=== PATIENT | female | born 1935 | race African-American/Black ===

== ENCOUNTER 2021-01-25 22:55 | Inpatient (IN) | payer OTHER, SELFPAY ==
[~2021-01-25] VITALS: Ht 167.6 cm; Wt 64.0 kg
[2021-01-25 23:10] VITALS: BP_SYST 143
--- NOTE | 2021-01-25 23:10 | NUR ---
Patient to ER bed 1 to gown for evaluation. Side rails up. Report given to self. ER Dr. Oleary at bedside examining patient. Code stroke cancelled. Addendum: 01/26/21 at 0147 by [email or web address] Patient transported to radiology via gurney, accompanied by mechanical manufacturing technician.
[2021-01-25] MEDS ORDERED: LABETALOL 100 MG/ 20ML VIAL IVP PRN (23:15)
--- NOTE | 2021-01-25 23:20 | NUR ---
Returned from radiology, back to [facility].
--- NOTE | 2021-01-26 00:10 | NUR ---
# 20 gauge angiocath placed to rac. Use of asceptic technique. Opsite placed over site. Blood return noted. Flushed with 10 cc of normal saline. No evidence of infiltration noted. Patient tolerated well.
[2021-01-26 00:22] LABS: BASOPHILS % (AUTO) 0.6 % (0.0-2.0); EOSINOPHILS % (AUTO) 1.1 % (0.0-4.0); HEMATOCRIT 39.9 % (36-48); HEMOGLOBIN 12.9 g/dL (12.0-16.0); LYMPHOCYTES % (AUTO) 25.7 % (20.5-51.5); MEAN CORPUSCULAR HEMOGLOBIN 28 pg (27-31); MEAN CORPUSCULAR HGB CONC 32 % (32-36); MEAN CORPUSCULAR VOLUME 86 fL (79.0-98.0); MONOCYTES # (AUTO) 0.9 K/uL (0.0-1.0); MONOCYTES % (AUTO) 21.1 % (1.7-9.3); NEUTROPHILS # (AUTO) 2.1 K/uL (1.8-7.7); NEUTROPHILS % (AUTO) 51.5 % (40.0-70.0); PLATELET COUNT (AUTO) 153 K/uL (130-430); RED BLOOD CELL COUNT(AUTO) 4.67 MIL/uL (4.2-6.2); RED CELL DISTRIBUTION WIDTH 16.5 % (9.0-15.0); WHITE BLOOD COUNT (AUTO) 4.1 K/uL (4.8-10.8)
[2021-01-26 00:30] LABS: ANION GAP 10 (5-15); CALCIUM 8.7 mg/dL (8.4-11.0); CHLORIDE 99 mmol/L (98-107); CREATININE 1.16 mg/dL (0.55-1.30); GLUCOSE 97 mg/dL (70-99); POTASSIUM 3.3 mmol/L (3.5-5.1); SODIUM SERUM 134 mmol/L (136-145); UREA NITROGEN, BLOOD 16 mg/dL (8-21)
[2021-01-26 00:33] LABS: INR 1.3 (0.8-1.2); PROTHROMBIN TIME 13.5 SECS (9.5-12.5)
[2021-01-26 00:41] LABS: ALANINE AMINOTRANSFERASE 20 U/L (12-78); ALBUMIN 2.6 g/dL (3.4-4.8); ASPARTATE AMINOTRANSFERASE 43 U/L (10-37); TOTAL BILIRUBIN 0.5 mg/dL (0.0-1.0)
[2021-01-26] MEDS ORDERED: DIPHENHYDRAMINE INJ 50 MG/ML VIAL IVP ONE (01:30)
--- NOTE | 2021-01-26 01:30 | NUR ---
patient resting comfortably at this time w/ c/o generalized body pain. patient to be medicated as ordered. bed to low position sr up, continue to monitor.
--- NOTE | 2021-01-26 01:43 | NUR ---
Medicated w/ benadryl 50mg ivp per MD orders. Will cont to monitor and observe for any adverse reaction.
--- NOTE | 2021-01-26 02:24 | NUR ---
# 16 FR Ellsworth catheter with use of sterile technique. Immediate return of 10 cc yellow, clear urine noted. Bedside drainage bag placed below level of bladder. Urine sample collected and sent to lab. Pt tolerated procedure well.
[2021-01-26] MEDS ORDERED: hydrALAZINE HCL 20 MG/ML VIAL IVP PRN ×2 (02:30)
[2021-01-26] MEDS ORDERED: ACETAMINOPHEN 325 MG TABLET PO PRN (02:30)
[2021-01-26 02:40] LABS: BASOPHILS % (AUTO) 0.9 % (0.0-2.0); EOSINOPHILS % (AUTO) 0.6 % (0.0-4.0); HEMATOCRIT 37.9 % (36-48); HEMOGLOBIN 12.3 g/dL (12.0-16.0); LYMPHOCYTES # (AUTO) 0.5 K/uL (1.0-5.5); LYMPHOCYTES % (AUTO) 14.8 % (20.5-51.5); MEAN CORPUSCULAR HEMOGLOBIN 27 pg (27-31); MEAN CORPUSCULAR HGB CONC 33 % (32-36); MEAN CORPUSCULAR VOLUME 85 fL (79.0-98.0); MONOCYTES # (AUTO) 0.5 K/uL (0.0-1.0); MONOCYTES % (AUTO) 14.7 % (1.7-9.3); NEUTROPHILS # (AUTO) 2.5 K/uL (1.8-7.7); PLATELET COUNT (AUTO) 179 K/uL (130-430); RED BLOOD CELL COUNT(AUTO) 4.49 MIL/uL (4.2-6.2); RED CELL DISTRIBUTION WIDTH 16.7 % (9.0-15.0); WHITE BLOOD COUNT (AUTO) 3.6 K/uL (4.8-10.8)
[2021-01-26 02:56] LABS: ANION GAP 8 (5-15); CALCIUM 8.5 mg/dL (8.4-11.0); CHLORIDE 100 mmol/L (98-107); CREATININE 1.13 mg/dL (0.55-1.30); GLUCOSE 82 mg/dL (70-99); SODIUM SERUM 135 mmol/L (136-145); UREA NITROGEN, BLOOD 17 mg/dL (8-21)
[2021-01-26 03:03] LABS: BILIRUBIN,URINE NEGATIVE (NEGATIVE); CLARITY/URINE CLEAR (CLEAR); COLOR,URINE YELLOW (YELLOW); GLUCOSE,URINE NEGATIVE (NEGATIVE); KETONES,URINE NEGATIVE (NEGATIVE); LEUKOCYTE ESTERASE ,URINE TRACE (NEGATIVE); NITRITE, URINE NEGATIVE (NEGATIVE); PROTEIN URINE 2+ (NEGATIVE); UROBILINOGEN,URINE 0.2 (0.2-1.0)
[2021-01-26 03:07] LABS: BLOOD, URINE TRACE (NEGATIVE)
--- NOTE | 2021-01-26 03:30 | NUR ---
Patient resting quietly. No acute distress noted. Vital signs within normal range.
[2021-01-26 04:21] LABS: BACTERIA,URINE MODERATE /HPF (None Seen)
[2021-01-26 04:22] LABS: MUCUS,URINE None Seen /LPF (None Seen)
[2021-01-26] MEDS ORDERED: LEVE500T9 PO (04:40)
[2021-01-26] MEDS ORDERED: ASA81 PO (04:40)
[2021-01-26] MEDS ORDERED: ALPR0.25 PO (04:40)
[2021-01-26] MEDS ORDERED: OLOP5DRO15 EACH EYE (04:40)
[2021-01-26] MEDS ORDERED: TRAM50TA PO (04:40)
[2021-01-26] MEDS ORDERED: FURO-150 PO (04:40)
[2021-01-26] MEDS ORDERED: LEVO112T5 PO (04:40)
[2021-01-26] MEDS ORDERED: CYAN100010 PO (04:40)
[2021-01-26] MEDS ORDERED: METO25TA3 PO (04:40)
[2021-01-26] MEDS ORDERED: CIPR500T5 PO (04:40)
[2021-01-26] MEDS ORDERED: SIMV10TA97 PO (04:40)
[2021-01-26] MEDS ORDERED: FOLI-43 PO (04:40)
--- NOTE | 2021-01-26 05:30 | NUR ---
Patient resting quietly. No acute distress noted. Vital signs within normal range.
--- NOTE | 2021-01-26 07:25 | NUR ---
PT TO BE TAKEN TO THE TELEMETRY FLOOR NOW.
[2021-01-26 08:00] VITALS: BP_SYST 114
--- NOTE | 2021-01-26 08:00 | NUR ---
Notes- Received patient from ER awake, oriented to name and birthdate, son at bedside. Denies any chest pain or shortness of breath. just complain of back pain, Repositioned for comfort. bed alarm on. will monitor.
[2021-01-26 08:37] VITALS: BP_SYST 114
--- NOTE | 2021-01-26 10:30 | NUR ---
MD rounds Seen by Dr. Moreno covering for Dr. rogel at bedside.
--- NOTE | 2021-01-26 10:42 | NUR ---
CONSULTATION PAGED/CALLED Reason for Consultation: STROKE Person Who was Notified: DR GUTIERREZ Consulting Physician: DR GUTIERREZ Physical Laboratory Assistant Specialty: Ordering Physician: OLIVERIO ABDI WAS INFORMED VIA TEXT REQUESTED Addendum: 01/26/21 at 1102 by David Ayala [place]/ CONSULT WAS SENT TO DOCTOR SEGUNDO REQUESTED BY BRENDA
[2021-01-26] MEDS: ONDANSETRON HCL 4 MG/2 ML VIAL IVP PRN (11:10)
[2021-01-26] MEDS: ENOXAPARIN SODIUM 40 MG/0.4 ML SYRINGE SUBCUT SCH (11:16)
[2021-01-26] MEDS: MORPHINE 2 MG/ML INJ. SYRINGE IVP PRN ×2 (11:17→15:49)
[2021-01-26 12:00] VITALS: BP_SYST 112
[2021-01-26] MEDS ORDERED: METOPROLOL SUCCINATE 25 MG TAB.SR.24H (TOPROL XL) PO ONE (15:00)
--- NOTE | 2021-01-26 15:30 | NUR ---
MD rounds Seen by neurologist at bedside.
--- NOTE | 2021-01-26 16:00 | NUR ---
Morphine- Per , they don't want to give morphine to patient because she hallucinates, but there is no allergic reaction to it.
[2021-01-26 16:20] VITALS: BP_SYST 116
[2021-01-26] MEDS: cefTRIAXone 1 GM in D5W 50 ML IV SCH (17:06)
--- NOTE | 2021-01-26 17:40 | NUR ---
paged- Per report in ER this morning, potassium is 3.0 and it was replaced, Unable to see orders or documentation that was replaced, called .
--- NOTE | 2021-01-26 18:44 | NUR ---
closing notes- Awake, family at bedside, pt talks a lot, No distress noted.
--- NOTE | 2021-01-26 19:10 | NUR ---
RECEIVED BEDSIDE REPORT. PT IN BED RESTING. PT AOX1. RR EVEN AND UNLABORED ON RA. HOB ELEVATED. TUBE FEEDING INFUSING VIA G TUBE. HEELS FLOATING. BED RAILS UPX3. CALL LIGHT WITHIN REACH. BED LOCKED IN LOWEST POSITION. FAMILY AT BEDSIDE. WILL CONTINUE TO MONITOR.
[2021-01-26 20:23] VITALS: BP_SYST 103
[2021-01-26] MEDS: levETIRAcetam 500 MG TABLET PO SCH (20:26)
[2021-01-26] MEDS: SIMVASTATIN 10 MG TABLET PO SCH (20:26)
[2021-01-26] MEDS ORDERED: OLOPATADINE HCL Non-Formulary 5 ML DROPS OP SCH (21:00)
[2021-01-27 00:55] VITALS: BP_SYST 105
--- NOTE | 2021-01-27 08:00 | NUR ---
am notes late entry due to care PT STABLE NOTIN ACUTE DISTRESS. VITALS STABLE. REPOSITIONED. PEPPER DRAINING WELL. HOB ELEVATED G TUBE FEEDING CONITNUE ORDERED. PT TOLERATING WELL. REPOSITIONED WITH PILLOW. SAFETY/FALL /SEIZURE PRECAUTIONS IN PLACE. WILL CONITNUE TO MONITOR
[2021-01-27 08:10] VITALS: BP_SYST 99
[2021-01-27] MEDS: FUROSEMIDE 20 MG TABLET PO SCH (09:00)
[2021-01-27] MEDS: METOPROLOL SUCCINATE 25 MG TAB.SR.24H (TOPROL XL) PO SCH (09:00)
[2021-01-27] MEDS: NACL 0.9% 1,000 ML IV SCH ×2 (09:21→22:26)
[2021-01-27] MEDS: LEVOTHYROXINE SODIUM 0.112 MG TABLET PO SCH (10:13)
[2021-01-27] MEDS: levETIRAcetam 500 MG TABLET PO SCH (10:13)
[2021-01-27] MEDS: ASPIRIN 81 MG TAB.CHEW PO SCH (10:13)
[2021-01-27] MEDS: ENOXAPARIN SODIUM 40 MG/0.4 ML SYRINGE SUBCUT SCH (10:14)
[2021-01-27 11:28] VITALS: BP_SYST 96
--- NOTE | 2021-01-27 11:47 | NUR ---
Nutrition Update Ashutosh Scale 15 noted. Pt admitted for r/o stroke. Diet: Glucerna 1.2 at 40 ml/hr, Free Water Flush: 50 via GT BMI: 22.6 kg/m2 RD to follow per nutrition care standards.
[2021-01-27] MEDS: cefTRIAXone 1 GM in D5W 50 ML IV SCH (15:09)
--- NOTE | 2021-01-27 15:14 | NUR ---
PT STABLE NOTIN ACUTE DISTRESS. SEEN BY RATNA.DENIES ANY PAIN.NEEDS ATTENDED . PTCLEANED AND REPOSITIONED. PEPPER DRAINING WELL. HOB ELEVATED G TUBE FEEDING CONITNUE ORDERED. PT TOLERATING WELL. REPOSTIONED WITH PILLOW. WILL CONITNUE TO MONITOR
[2021-01-27 15:15] VITALS: BP_SYST 104
[2021-01-27] MEDS ORDERED: POTASSIUM CHLORIDE 40 MEQ, LIDOCAINE JECT 2% PF 100 MG 50 MG in NS 250 ML IV ONE (16:00)
--- NOTE | 2021-01-27 18:48 | NUR ---
CLOSING NOTES PT STABLE . RESTING COMFORTABLY. NOTIN ACUTE DISTRESS. REPOSITIONED. PEPPER DRAINING WELL. HOB ELEVATED G TUBE FEEDING CONTINUE ORDERED. PT TOLERATING WELL. AT BED SIDE. SAFETY/FALL /SEIZURE PRECAUTIONS IN PLACE. WILL ENDORSE TO NIGHT NURSE
[2021-01-27] MEDS: SIMVASTATIN 10 MG TABLET PO SCH (22:25)
[2021-01-27] MEDS: levETIRAcetam 500 MG TABLET GT SCH (22:25)
[2021-01-27 22:26] VITALS: BP_SYST 108
[2021-01-28 01:16] VITALS: BP_SYST 109
[2021-01-28] MEDS: HYDROcodone/ACETAMIN 5-325 MG TAB (NORCO/ VICODIN) PO PRN (01:31)
--- NOTE | 2021-01-28 07:45 | NUR ---
START SHIFT REPORT: RECV'D PT. FROM [facility] NURSE. SON IS AT BEDSIDE. PT. AWAKE AND ALERT AND DENIES PAIN. RAC IV INTACT AND PATENT WITH FLUIDS INFUSING AND TOLERATED WELL. NO S/S INFECTION OR INFILTRATION AT SITE. GT INTACT AND PATENT WITH GLUCERNA 1.2 FEED INFUSING AT 4OML. GT SITE HAS NO REDNESS, SWELLING, BLEEDING, OR ODOR AT SITE.PT C/O OF SLIGHT NAUSEA. SON REQUESTED HOB TO BE SLIGHTLY ELEVATED. ALL SAFETY PRECAUTIONS BEING MAINTAINED WITH BED IN LOWEST POSITION, 3 SIDE RAILS UP, AND CALL MCGUIRE WITHIN REACH. WILL CONTINUE TO MONITOR PT. THROUGHOUT SHIFT.
--- NOTE | 2021-01-28 07:48 | NUR ---
PT IN BED RESTING. SON AT BEDSIDE. MRI CHECKLIST SIGNED. ENDORSED CARE TO DAY NURSE. PT IN BED RESTING.
[2021-01-28 08:00] VITALS: BP_SYST 137
[2021-01-28] MEDS: ENOXAPARIN SODIUM 40 MG/0.4 ML SYRINGE SUBCUT SCH (09:00)
--- NOTE | 2021-01-28 09:30 | NUR ---
ASSISTED SON WITH GIVING PT. BED BATH, AND CHANGING BED LINENS. SON REQUESTED AND USED WASHCLOTHS TO BATHE/CLEAN PT. WITH. PEPPER INTACT AND PATENT DRAINING CLEAR, YELLOW URINE. DENIES PAIN. C/O OF BEING COLD. PT. COVERED WITH SEVERAL SHEETS AND BLANKETS. SAFETY PRECAUTIONS BEING MAINTAINED WITH BED IN LOWEST POSITION, 3 SIDE RAILS UP, AND CALL MCGUIRE WITHIN REACH. WILL CONTINUE TO MONITOR PT.
--- NOTE | 2021-01-28 11:30 | NUR ---
CONSULT CALLED DR CEDILLO, SPOKE WITH GINETTE, CONSULT FOR INCREASED TROPONIN
[2021-01-28] MEDS: levETIRAcetam 500 MG TABLET GT SCH ×2 (11:31→21:28)
[2021-01-28] MEDS: FUROSEMIDE 20 MG TABLET PO SCH (11:32)
[2021-01-28] MEDS: ASPIRIN 81 MG TAB.CHEW PO SCH (11:32)
[2021-01-28] MEDS: LEVOTHYROXINE SODIUM 0.112 MG TABLET PO SCH (11:33)
[2021-01-28] MEDS: METOPROLOL SUCCINATE 25 MG TAB.SR.24H (TOPROL XL) PO SCH (11:33)
--- NOTE | 2021-01-28 14:28 | NUR ---
NEW ORDERS: RECV'D NEW ORDER FROM SUNNY SMASHER TO INCREASE GT FEED GLUCERNA 1.2 TO 50ML/HR, AND GT FLUSHES TO 150ML EVERY 6 HOURS.
--- NOTE | 2021-01-28 15:21 | NUR ---
Dietitian Recommendations * Glucerna 1.5 at 55 ml/hr (goal rate), Free Water Flush: 150 ml Q6h via GT Provides: 1980 kcal/day, 109 gm protein/day, and 1602 ml free water/day Meets: 103% of lower end of estimated caloric needs and 85% of upper end of estimated protein needs LP, RD Please refer to Nutrition Assessment for details. Addendum: 01/28/21 at [address] Amended: Links added.
--- NOTE | 2021-01-28 16:01 | NUR ---
PT. IV CAME OUT OF ARM. PT. REFUSING TO HAVE IV REINSERTED. WILL INFORM MD OF PT. REFUSING. PT. LEFT FOR MRI OF HEAD AT 1515 VIA [facility] BY 2 ESCORTS. RETURNED FROM MRI AT 1600. WILL REEDUCATE PT. ON IMPORTANCE OF HAVING IV REINSERTED.
[2021-01-28] MEDS: cefTRIAXone 1 GM in D5W 50 ML IV SCH (16:58)
[2021-01-28] MEDS: ONDANSETRON HCL 4 MG/2 ML VIAL IVP PRN (17:48)
--- NOTE | 2021-01-28 19:00 | NUR ---
RECEIVED BEDSIDE REPORT. PT IN BED RESTING. PT AOX1. RR EVEN AND UNLABORED ON RA. HOB ELEVATED. TUBE FEEDING INFUSING VIA G TUBE. HEELS FLOATING. BED RAILS UPX3. CALL LIGHT WITHIN REACH. BED LOCKED IN LOWEST POSITION. FAMILY AT BEDSIDE. WILL CONTINUE TO MONITOR. RN EDUCATED PATIENT TO MEDICAL PLAN OF CARE. FALL AND SAFETY INTERVENTIONS AND PLAN OF CARE. VSS. NO ACUTE DISTRESS NOTED.
--- NOTE | 2021-01-28 19:30 | NUR ---
END SHIFT REPORT: ENDORSED PT. AND GAVE REPORT TO NIGHT NURSE JOLEEN. GAIL DAY NURSE REINSERTED NEW IV 22G IN RIGHT HAND. ROCEPHIN ABT INFUSED 100%. IV WAS INTACT AND PATENT WITH NO S/S OF INFECTION OR INFILTRATION. END OF SHIFT IV CAME OUT AGAIN, AND PT. REFUSED TO HAVE REINSERTED BECAUSE STATED "I DON'T WANT TO BE STUCK AGAIN." INFORMED CLAIMS VICE PRESIDENT MD. DR. MARTINEZ THAT PT. REFUSED IV REINSERTION. DR. MARTINEZ STATED TO DOCUMENT PT. REFUSED. SON CAME IN AND TALKED TO PT. ABOUT IMPORTANCE OF HAVING IV REINSERTED. PT. AGREED TO HAVE IV REINSERTED.
[2021-01-28] MEDS: SIMVASTATIN 10 MG TABLET PO SCH (21:27)
[2021-01-28] MEDS: NACL 0.9% 1,000 ML IV SCH (21:27)
[2021-01-29 00:06] VITALS: BP_SYST 124
[2021-01-29] MEDS: ALPRAZolam 0.25 MG TABLET PO PRN ×2 (00:16→12:31)
[2021-01-29 04:00] VITALS: BP_SYST 132
--- NOTE | 2021-01-29 08:00 | NUR ---
INITIAL NOTES AWAKE, CONFUSED. DENIES ANY SHORTNESS OF BREATH OR CHEST PAIN. IVF INFUSING WELL. GT FEEDING TOLERATING SO FAR. PEPPER CATH DRAINING WELL. BED ALARM ON. WILL CONTINUE TO MONITOR.
[2021-01-29 08:08] VITALS: BP_SYST 139
[2021-01-29] MEDS: levETIRAcetam 500 MG TABLET GT SCH ×2 (08:54→21:18)
[2021-01-29] MEDS: LEVOTHYROXINE SODIUM 0.112 MG TABLET PO SCH (08:54)
[2021-01-29] MEDS: FUROSEMIDE 20 MG TABLET PO SCH (08:54)
[2021-01-29] MEDS: METOPROLOL SUCCINATE 25 MG TAB.SR.24H (TOPROL XL) PO SCH (08:55)
[2021-01-29] MEDS: ASPIRIN 81 MG TAB.CHEW PO SCH (08:55)
[2021-01-29] MEDS: ENOXAPARIN SODIUM 40 MG/0.4 ML SYRINGE SUBCUT SCH (09:00)
[2021-01-29] MEDS ORDERED: DIATR MEGLU/DIATRIZ SOD 30 ML SOLUTION PO ONE (09:19)
[2021-01-29 09:21] LABS: BASOPHILS % (AUTO) 0.5 % (0.0-2.0); EOSINOPHILS # (AUTO) 0.1 K/uL (0.0-0.4); EOSINOPHILS % (AUTO) 1.4 % (0.0-4.0); HEMATOCRIT 36.8 % (36-48); HEMOGLOBIN 11.9 g/dL (12.0-16.0); LYMPHOCYTES # (AUTO) 0.7 K/uL (1.0-5.5); LYMPHOCYTES % (AUTO) 16.7 % (20.5-51.5); MEAN CORPUSCULAR HEMOGLOBIN 28 pg (27-31); MEAN CORPUSCULAR HGB CONC 32 % (32-36); MEAN CORPUSCULAR VOLUME 86 fL (79.0-98.0); MONOCYTES # (AUTO) 0.6 K/uL (0.0-1.0); MONOCYTES % (AUTO) 13.4 % (1.7-9.3); NEUTROPHILS # (AUTO) 2.9 K/uL (1.8-7.7); PLATELET COUNT (AUTO) 163 K/uL (130-430); RED CELL DISTRIBUTION WIDTH 16.5 % (9.0-15.0); WHITE BLOOD COUNT (AUTO) 4.2 K/uL (4.8-10.8)
[2021-01-29 09:42] LABS: ANION GAP 7 (5-15); CALCIUM 8.5 mg/dL (8.4-11.0); CHLORIDE 104 mmol/L (98-107); CREATININE 1.17 mg/dL (0.55-1.30); GLUCOSE 89 mg/dL (70-99); POTASSIUM 4.6 mmol/L (3.5-5.1); SODIUM SERUM 137 mmol/L (136-145); UREA NITROGEN, BLOOD 26 mg/dL (8-21)
[2021-01-29 09:47] LABS: ALANINE AMINOTRANSFERASE 23 U/L (12-78); ALBUMIN 2.5 g/dL (3.4-4.8); ASPARTATE AMINOTRANSFERASE 50 U/L (10-37); TOTAL BILIRUBIN 0.3 mg/dL (0.0-1.0)
[2021-01-29] MEDS: NACL 0.9% 1,000 ML IV SCH (10:45)
--- NOTE | 2021-01-29 11:00 | NUR ---
NOTES- HAD BOWEL MOVEMENT, CHANGED AND REPOSITIONED.
[2021-01-29 13:17] VITALS: BP_SYST 148
--- NOTE | 2021-01-29 14:15 | NUR ---
NOTES- SLEEP AT THIS TIME, BREATHING EVEN AND UNLABORED.
[2021-01-29] MEDS: cefTRIAXone 1 GM in D5W 50 ML IV SCH (15:23)
[2021-01-29 17:28] VITALS: BP_SYST 118
--- NOTE | 2021-01-29 18:09 | NUR ---
Note- Patient accidentally pulled IV out, refuses to start at this time. will endorse.
[2021-01-29 20:05] VITALS: BP_SYST 133
[2021-01-29] MEDS: SIMVASTATIN 10 MG TABLET PO SCH (21:18)
--- NOTE | 2021-01-29 22:15 | NUR ---
Refuse IV restart Pt refused IV start at this time. Pt states "Just wait til my son gets here, we just live 5 mins away."
[2021-01-30 00:37] VITALS: BP_SYST 132
--- NOTE | 2021-01-30 01:20 | NUR ---
Rounds/Pericare Pt incontinent of BM. Pericare/skin care provide. Z guard applied to sacral area. Pt requested to call son, reoriented pt to time. Call light within reach. Safety maintained. To monitor.
[2021-01-30] MEDS: NACL 0.9% 1,000 ML IV SCH ×2 (03:25→22:12)
[2021-01-30] MEDS: traMADol HCL HCL 50 MG TABLET (ULTRAM) PO PRN (05:25)
--- NOTE | 2021-01-30 05:25 | NUR ---
Closing notes/IV restart Pt alert, awake, no s/s distress noted. IV restart on R wrist 24 G continued IVF at ordered rate. Pt c/o pain on shakira knees, Tramadol 100mg administered via G-tube. GT feeding Glucerna 1.5 running at 55cc/hr, no residual noted. Ellsworth catheter draining to gravity. Pt repositioned with pillow support. HOB maintained elevated. Call light within reach. Son at the bedside. To endorse to AM nurse.
[2021-01-30 08:00] VITALS: BP_SYST 118
[2021-01-30] MEDS: ASPIRIN 81 MG TAB.CHEW PO SCH (09:35)
[2021-01-30] MEDS: LEVOTHYROXINE SODIUM 0.112 MG TABLET PO SCH (09:36)
[2021-01-30] MEDS: FUROSEMIDE 20 MG TABLET PO SCH (09:36)
[2021-01-30] MEDS: levETIRAcetam 500 MG TABLET GT SCH ×2 (09:37→21:15)
[2021-01-30] MEDS: METOPROLOL SUCCINATE 25 MG TAB.SR.24H (TOPROL XL) PO SCH (09:37)
[2021-01-30] MEDS: ENOXAPARIN SODIUM 40 MG/0.4 ML SYRINGE SUBCUT SCH (09:38)
[2021-01-30] MEDS: HYDROcodone/ACETAMIN 5-325 MG TAB (NORCO/ VICODIN) PO PRN ×2 (09:46→16:01)
--- NOTE | 2021-01-30 11:55 | NUR ---
CONSULT ONCOLOGY COLON CANCER SHAY CASSIDY [phone] S/W [facility] OFFICE
[2021-01-30] MEDS: ALPRAZolam 0.25 MG TABLET PO PRN (12:11)
[2021-01-30 12:30] VITALS: BP_SYST 107
--- NOTE | 2021-01-30 13:11 | NUR ---
alert, oriented, complained of abdominal pain, checked the GT site, no leakage, noticeable protrusion of her abdomen. Claimed pain meds given earlier did not help. NORCO 5/325mg given via GT, with relief very anxious appearing woman, per son's request, XANAX 0.25mg given now seen by hematology/oncology.
--- NOTE | 2021-01-30 13:36 | NUR ---
Onco and Hospitalist MDS DR MUNOZ AND BERTRAM, REQUESTED PTS' RECORDS FROM [facility]. FAXED REQUEST TO RELEASE OF MEDICAL INFO ATTN: DANNY ([phone]).
[2021-01-30] MEDS: cefTRIAXone 1 GM in D5W 50 ML IV SCH (15:51)
[2021-01-30] MEDS: ONDANSETRON HCL 4 MG/2 ML VIAL IVP PRN (16:02)
[2021-01-30 16:16] VITALS: BP_SYST 110
[2021-01-30] MEDS: SIMVASTATIN 10 MG TABLET PO SCH (21:15)
--- NOTE | 2021-01-30 21:15 | NUR ---
Opening notes Pt asleep, easily awakens, VSS. No s/s distress noted. GT feeding Glucerna running at 55cc/hr (goal rate), 80cc residual noted and returned. Scheduled meds administered via GT. GT site redness cleansed, Z guard and drain sponege applied. HOB maintained elevated. Ellsworth catheter draining to gravity secured. Pt repositioned. To monitor.
[2021-01-30 21:20] VITALS: BP_SYST 100
--- NOTE | 2021-01-30 22:48 | NUR ---
Rounds/IV Pt IV leaking, son noticed at bedside. IV is out. Pt refused to have IV reinserted again. Educated pt/son that she has antibiotic tomorrow afternoon and no antibiotics tonight. GT feeding running at ordered rate. Ellsworth catheter draining to gravity with yellow urine. Call light within reach. To monitor.
[2021-01-31 01:31] VITALS: BP_SYST 114
[2021-01-31] MEDS: ALPRAZolam 0.25 MG TABLET PO PRN (02:43)
--- NOTE | 2021-01-31 02:48 | NUR ---
Rounds/Xanax Pt awake, yelling "help", no s/s distress noted. GT feeding running at ordered rate. Ellsworth catheter draining to gravity with yellow urine. Pt repositioned. HOB maintained elevated. Call light within reach. Bed low, locked, siderails up x3, alarm on. To monitor.
--- NOTE | 2021-01-31 06:20 | NUR ---
Opening notes Pt asleep, easily awakens. No s/s distress noted. GT feeding Glucerna running at 55cc/hr tolerating well. Ellsworth catheter draining to gravity secured. Pt repositioned. HOB maintained elevated. Call light within reach. Bed low, locked, siderails up x3, alarm on. To endorse to AM nurse.
[2021-01-31 08:00] VITALS: BP_SYST 114
[2021-01-31] MEDS: levETIRAcetam 500 MG TABLET GT SCH ×2 (09:52→22:07)
[2021-01-31] MEDS: ASPIRIN 81 MG TAB.CHEW PO SCH (09:53)
[2021-01-31] MEDS: traMADol HCL HCL 50 MG TABLET (ULTRAM) PO PRN ×2 (09:53→14:29)
[2021-01-31] MEDS: FUROSEMIDE 20 MG TABLET PO SCH (09:54)
[2021-01-31] MEDS: LEVOTHYROXINE SODIUM 0.112 MG TABLET PO SCH (09:54)
[2021-01-31] MEDS: ENOXAPARIN SODIUM 40 MG/0.4 ML SYRINGE SUBCUT SCH (09:55)
[2021-01-31] MEDS: METOPROLOL SUCCINATE 25 MG TAB.SR.24H (TOPROL XL) PO SCH (09:55)
[2021-01-31 12:41] VITALS: BP_SYST 105
[2021-01-31] MEDS: NACL 0.9% 1,000 ML IV SCH ×2 (12:45→22:57)
[2021-01-31] MEDS: cefTRIAXone 1 GM in D5W 50 ML IV SCH (14:21)
[2021-01-31 16:38] VITALS: BP_SYST 110
[2021-01-31 20:45] VITALS: BP_SYST 116
[2021-01-31] MEDS: SIMVASTATIN 10 MG TABLET PO SCH (22:07)
[2021-02-01] MEDS: HYDROcodone/ACETAMIN 5-325 MG TAB (NORCO/ VICODIN) PO PRN ×2 (05:17→13:30)
[2021-02-01 07:58] VITALS: BP_SYST 133
--- NOTE | 2021-02-01 07:58 | NUR ---
INITIAL ROUNDS Received pt AAOx3, no s/s resp distress, no c/o pain or discomfort. IVF infusing well to right hand at ordered rate with no s/s infiltration to site. Glucerna 1.5 infusing well via g-tube at ordered rate with no residual noted. HOB elevated for aspiration precautions. Pt repositioned with pillow support and heels off-loaded for skin care and comfort. Side rails up x3, bed alarm on and room across from nursing station for safety. Call light within reach.
[2021-02-01] MEDS: METOPROLOL SUCCINATE 25 MG TAB.SR.24H (TOPROL XL) PO SCH (09:44)
[2021-02-01] MEDS: ENOXAPARIN SODIUM 40 MG/0.4 ML SYRINGE SUBCUT SCH (09:44)
[2021-02-01] MEDS: ASPIRIN 81 MG TAB.CHEW PO SCH (09:44)
[2021-02-01] MEDS: levETIRAcetam 500 MG TABLET GT SCH ×2 (09:45→21:11)
[2021-02-01] MEDS: FUROSEMIDE 20 MG TABLET PO SCH (09:45)
--- NOTE | 2021-02-01 11:33 | NUR ---
PER ONCO/EVIN MD DR MUNOZ, BIOPSY OF THE PELVIC MASS WAS REQUESTED FROM [facility]. THE BIOPSY WAS DONE COUPLE OF MONTHS AGO. SPOKE TO ARTEM AND HE AGREED TO FAX IT NOW AFTER TALKING WITH DR MUNOZ.
[2021-02-01 12:56] VITALS: BP_SYST 118
[2021-02-01] MEDS: cefTRIAXone 1 GM in D5W 50 ML IV SCH (14:53)
[2021-02-01] MEDS: traMADol HCL HCL 50 MG TABLET (ULTRAM) PO PRN (14:58)
[2021-02-01 16:45] VITALS: BP_SYST 114
--- NOTE | 2021-02-01 19:00 | NUR ---
CLOSING NOTE Pt resting quietly in bed with no s/s resp distress, no further c/o pain or discomfort. IVF infusing well to right hand at ordered rate with no s/s infiltration to site. Glucerna infusing well via G-tube at ordered rate. Aspiration, skin and safety precautions remain in place. Call light within reach.
--- NOTE | 2021-02-01 19:15 | NUR ---
CHANGE OF SHIFT; endorsed by day shift. no distress. on seizure precaution. on fall risk, bed alarm on. pt. room close to nurses station. call light at bedside.
--- NOTE | 2021-02-01 20:05 | NUR ---
NOTES: pt. awake, alert, asking me to call her home. IVF continuous. via rt. forearm, removed gauze around it. pt. forgetful. on g tube feed, site clean.
[2021-02-01 20:30] VITALS: BP_SYST 121
--- NOTE | 2021-02-01 20:30 | NUR ---
NOTES: called pt. family, transferred the call to pt. room, son on the other line. IV infusing via rt. arm. pt. incontinent of stool, coulter cath to osd. pt. needs attended.
[2021-02-01] MEDS: SIMVASTATIN 10 MG TABLET PO SCH (21:11)
--- NOTE | 2021-02-01 22:15 | NUR ---
NOTES: complete linen changed, jodi care done, incontinent of stool/ jodi care done. rewrapped rt. arm IV site. pt. yells every now and then wanting to call home. calld her family 3x., looking foe her son.
[2021-02-02] MEDS: NACL 0.9% 1,000 ML IV SCH ×2 (01:17→13:08)
--- NOTE | 2021-02-02 02:13 | NUR ---
NOTES: pt. still awake, still wants to call home, told her will call in am since its 2 am already.
--- NOTE | 2021-02-02 03:14 | NUR ---
NOTES: pt. son Tonya here, helped in cleaning her mom. had another bowel movement. redness noted on groin and upper thigh, z sheila applied.
[2021-02-02] MEDS: traMADol HCL HCL 50 MG TABLET (ULTRAM) PO PRN (04:54)
--- NOTE | 2021-02-02 05:00 | NUR ---
NOTES: still awake, medicated for c/o abdominal pain. repositioned. pt. son still at bedside.
--- NOTE | 2021-02-02 06:50 | NUR ---
CLOSING NOTES; pt. pretty calm when son is around, but still did not sleep. IVF patent, coulter intact. IVF continuous. for further care and assistance. bed alarm on. call light at bedside.
[2021-02-02] MEDS: LEVOTHYROXINE SODIUM 0.112 MG TABLET PO SCH (07:08)
[2021-02-02 08:00] VITALS: BP_SYST 135
--- NOTE | 2021-02-02 08:00 | NUR ---
Opening notes: Pt resting quietly in bed, son at bedside. No s/s respiratory distress, no further c/o pain or discomfort. IVF infusing well to right hand at ordered rate with no s/s infiltration to site. Glucerna infusing well via G-tube at ordered rate. Aspiration, skin and safety precautions remain in place. Call light within reach, will continue to monitor.
[2021-02-02] MEDS: ENOXAPARIN SODIUM 40 MG/0.4 ML SYRINGE SUBCUT SCH (09:37)
[2021-02-02] MEDS: levETIRAcetam 500 MG TABLET GT SCH ×2 (09:37→20:59)
[2021-02-02] MEDS: ASPIRIN 81 MG TAB.CHEW PO SCH (09:38)
[2021-02-02] MEDS: FUROSEMIDE 20 MG TABLET PO SCH (09:39)
[2021-02-02] MEDS: METOPROLOL SUCCINATE 25 MG TAB.SR.24H (TOPROL XL) PO SCH (09:39)
[2021-02-02 12:00] VITALS: BP_SYST 149
--- NOTE | 2021-02-02 12:00 | NUR ---
Lunch rounds: Pt resting quietly in bed. No s/s respiratory distress, no further c/o pain or discomfort. IVF infusing well to right hand at ordered rate with no s/s infiltration to site. Glucerna infusing well via G-tube at ordered rate. Aspiration, skin and safety precautions remain in place. Call light within reach, will continue to monitor.
[2021-02-02 16:49] VITALS: BP_SYST 146
[2021-02-02] MEDS: HYDROcodone/ACETAMIN 5-325 MG TAB (NORCO/ VICODIN) PO PRN (18:35)
[2021-02-02] MEDS: ALPRAZolam 0.25 MG TABLET PO PRN (18:39)
[2021-02-02 18:43] VITALS: BP_SYST 146
--- NOTE | 2021-02-02 19:55 | NUR ---
Closing notes: Pt resting quietly in bed. No s/s respiratory distress, no further c/o pain or discomfort. IVF infusing well to right hand at ordered rate with no s/s infiltration to site. Glucerna infusing well via G-tube at ordered rate. Aspiration, skin and safety precautions remain in place. Call light within reach, will endorse to operations supervisor 2nd shift.
[2021-02-02 20:15] VITALS: BP_SYST 131
[2021-02-02] MEDS: SIMVASTATIN 10 MG TABLET PO SCH (21:00)
[2021-02-03] VITALS (7 sets, daily range): BP systolic 131–150
--- NOTE | 2021-02-03 00:45 | NUR ---
TERRI: pt. son called and wants her to be check since he said " my mom's abdomen is pulsating and said the last time she had the heart attack ". checked VS BP 145/86 HR 109 T 97.8 O2 sat 07%. pt. denies chest pain nor abdominal pain, will cLL md. asked monitor [facility] to call senior recruitment consultant MD liv rogel.
--- NOTE | 2021-02-03 00:56 | NUR ---
NOTES: Dr. helton called and informed her pt. son concern. ordered stat troponin, pt. getting upset and telling me that he is going to Er and talk to nurses, called section supervisor to talk to him.
--- NOTE | 2021-02-03 01:36 | NUR ---
NOTES: called lab for Troponin result, still in process another 20 minutes . pt. checked, noted some labored breathing, quite anxious. O2 sat 99% , placed on 2 liters per nasal canula. HOB elevated. condition guarded.
--- NOTE | 2021-02-03 02:02 | NUR ---
NOTES: pt. reassess again with the nursing superviasor Isidro with pt. son at bedside. still waiting for troponin level.
--- NOTE | 2021-02-03 02:25 | NUR ---
NOTES: Dr. helton called and informed pt. Troponin level 0.419, ordered to place on telemetry, repeat troponin this am, EKG and follow up with Dr. Madrid. kept on O2 2 2 liters pernc. O2 sat 100%. Addendum: 02/03/21 at 0745 by Delmis Leonard RN late entry BP 149/89 HR 103
--- NOTE | 2021-02-03 03:30 | NUR ---
NOTES: pt. called and said she had a bm, jodi care done. repositioned, sacral foam dressing applied on sore skin.
[2021-02-03] MEDS: HYDROcodone/ACETAMIN 5-325 MG TAB (NORCO/ VICODIN) PO PRN ×2 (03:44→15:05)
--- NOTE | 2021-02-03 03:45 | NUR ---
NOTES: pt. been yelling, came and checked her, lookin for her son, said she is in pain and quite restless. medicated with Oden po per g tube.
--- NOTE | 2021-02-03 04:00 | NUR ---
NOTES: pt. starts yelling for her son humaira, left her room. getting restless, wants me to call his son, took off O2 and her covers and saying she cant breathe. repositioned, pulled up in bed. told her to calm down and stop yelling. pt. still insisting to call her son.
[2021-02-03] MEDS: NACL 0.9% 1,000 ML IV SCH (05:24)
--- NOTE | 2021-02-03 05:30 | NUR ---
NOTES: pt. still awake even after pain medication. pt. and son continuously talking back to each other. pt. IV site checked, tele box on the side, pt. son apparently said it was on her back, placed the tele box myself on pt. gown packet. O2 sat remain 100%. pt. more calmer when son is around.
--- NOTE | 2021-02-03 06:37 | NUR ---
CLOSING NOTES; rechecked BP 131/75 hr 95 O2 sat 96% on 2 liter per nc. pt. son remain at bedside. condition guarded. will follow up with Dr. Madrid. EKG and repeat Troponin. will be done. for further care and assit. will endorse to incoming shift. casll light at bedside.
[2021-02-03] MEDS: LEVOTHYROXINE SODIUM 0.112 MG TABLET PO SCH (06:59)
[2021-02-03 09:38] LABS: BASOPHILS % (AUTO) 0.3 % (0.0-2.0); EOSINOPHILS % (AUTO) 0.4 % (0.0-4.0); HEMATOCRIT 33.7 % (36-48); LYMPHOCYTES # (AUTO) 0.6 K/uL (1.0-5.5); LYMPHOCYTES % (AUTO) 13.7 % (20.5-51.5); MEAN CORPUSCULAR HEMOGLOBIN 28 pg (27-31); MEAN CORPUSCULAR HGB CONC 33 % (32-36); MEAN CORPUSCULAR VOLUME 84 fL (79.0-98.0); MONOCYTES # (AUTO) 0.4 K/uL (0.0-1.0); MONOCYTES % (AUTO) 10.9 % (1.7-9.3); NEUTROPHILS # (AUTO) 3.1 K/uL (1.8-7.7); NEUTROPHILS % (AUTO) 74.7 % (40.0-70.0); PLATELET COUNT (AUTO) 185 K/uL (130-430); RED CELL DISTRIBUTION WIDTH 16.2 % (9.0-15.0); WHITE BLOOD COUNT (AUTO) 4.1 K/uL (4.8-10.8)
[2021-02-03 09:46] LABS: ALANINE AMINOTRANSFERASE 18 U/L (12-78); ALBUMIN 2.1 g/dL (3.4-4.8); ANION GAP 7 (5-15); ASPARTATE AMINOTRANSFERASE 40 U/L (10-37); CALCIUM 8.2 mg/dL (8.4-11.0); CHLORIDE 104 mmol/L (98-107); CREATININE 0.86 mg/dL (0.55-1.30); GLUCOSE 101 mg/dL (70-99); PHOSPHORUS 2.6 mg/dL (2.7-4.5); POTASSIUM 4.3 mmol/L (3.5-5.1); SODIUM SERUM 138 mmol/L (136-145); TOTAL BILIRUBIN 0.2 mg/dL (0.0-1.0); UREA NITROGEN, BLOOD 33 mg/dL (8-21)
[2021-02-03] MEDS: METOPROLOL SUCCINATE 25 MG TAB.SR.24H (TOPROL XL) PO SCH (09:57)
[2021-02-03] MEDS: levETIRAcetam 500 MG TABLET GT SCH ×2 (09:57→20:25)
[2021-02-03] MEDS: ASPIRIN 81 MG TAB.CHEW PO SCH (09:57)
[2021-02-03] MEDS: traMADol HCL HCL 50 MG TABLET (ULTRAM) PO PRN ×2 (09:58→20:25)
[2021-02-03] MEDS: FUROSEMIDE 20 MG TABLET PO SCH (09:58)
[2021-02-03] MEDS: ENOXAPARIN SODIUM 40 MG/0.4 ML SYRINGE SUBCUT SCH (10:07)
[2021-02-03] MEDS: ALPRAZolam 0.25 MG TABLET PO PRN (15:06)
--- NOTE | 2021-02-03 15:15 | NUR ---
Nursing Late entry due to patient care 09:00- patient in bed with son at the bedside. patient appears anxious. Dr Madrid in the room answering questions from patient and patient son and discussing plan of care. 10:30 - Dr Montenegro at the bedside. patient appears comfortable at this time. 12:00 - No distress noted. refused to be repositioned. Educated on importance of repositioning. will need to follow up 14:00- Denies pain at this time. patient refused to be repositioned. again educated with repositioning. patient is dry at this time.
[2021-02-03] MEDS: SIMVASTATIN 10 MG TABLET PO SCH (20:25)
[2021-02-04] MEDS: NACL 0.9% 1,000 ML IV SCH (00:05)
[2021-02-04 00:10] VITALS: BP_SYST 143
[2021-02-04] MEDS ORDERED: IPRATROPIUM/ALBUTEROL SULFATE 3 ML AMPUL.NEB (DUONEB) INH ONE (02:15)
[2021-02-04] MEDS: LEVOTHYROXINE SODIUM 0.112 MG TABLET PO SCH (06:16)
[2021-02-04 06:59] LABS: BASOPHILS % (AUTO) 0.5 % (0.0-2.0); EOSINOPHILS # (AUTO) 0.1 K/uL (0.0-0.4); EOSINOPHILS % (AUTO) 1.5 % (0.0-4.0); HEMATOCRIT 32.7 % (36-48); HEMOGLOBIN 10.9 g/dL (12.0-16.0); LYMPHOCYTES # (AUTO) 0.6 K/uL (1.0-5.5); MEAN CORPUSCULAR HEMOGLOBIN 28 pg (27-31); MEAN CORPUSCULAR HGB CONC 33 % (32-36); MEAN CORPUSCULAR VOLUME 84 fL (79.0-98.0); MONOCYTES # (AUTO) 0.4 K/uL (0.0-1.0); MONOCYTES % (AUTO) 10.9 % (1.7-9.3); NEUTROPHILS # (AUTO) 2.8 K/uL (1.8-7.7); NEUTROPHILS % (AUTO) 71.1 % (40.0-70.0); PLATELET COUNT (AUTO) 189 K/uL (130-430); RED BLOOD CELL COUNT(AUTO) 3.88 MIL/uL (4.2-6.2); WHITE BLOOD COUNT (AUTO) 3.9 K/uL (4.8-10.8)
[2021-02-04 08:25] LABS: ANION GAP 6 (5-15); CALCIUM 8.3 mg/dL (8.4-11.0); CHLORIDE 104 mmol/L (98-107); CREATININE 0.97 mg/dL (0.55-1.30); GLUCOSE 101 mg/dL (70-99); PHOSPHORUS 2.7 mg/dL (2.7-4.5); POTASSIUM 4.4 mmol/L (3.5-5.1); SODIUM SERUM 138 mmol/L (136-145); UREA NITROGEN, BLOOD 36 mg/dL (8-21)
[2021-02-04 10:06] VITALS: BP_SYST 113
--- NOTE | 2021-02-04 10:06 | NUR ---
PHYSICAL THERAPY ORDER HAS BEEN RECEIVED AND THE CHART REVIEWED. SPOKE WITH PATIENT'S SON, MARTHA, WHO REPORTS PATIENT'S PRIOR LEVEL OF FUNCTION TO BE TOTAL ASSIST/DEPENDENT. HE PERFORMS ROM EXERCISES WITH HER ON A DAILY BASIS. SON REPORTS POSSIBLE DISCHARGE HOME TODAY. HE IS WAITING TO SPEAK WITH MD. HE IS AGREEABLE TO ATTEMPT ROM EXERCISES TOMORROW IF PATIENT IS STILL HERE.
[2021-02-04] MEDS: traMADol HCL HCL 50 MG TABLET (ULTRAM) PO PRN ×2 (10:10→18:05)
[2021-02-04] MEDS: levETIRAcetam 500 MG TABLET GT SCH ×2 (10:10→22:36)
[2021-02-04] MEDS: ASPIRIN 81 MG TAB.CHEW PO SCH (10:11)
[2021-02-04] MEDS: FUROSEMIDE 20 MG TABLET PO SCH (10:12)
[2021-02-04] MEDS: ENOXAPARIN SODIUM 40 MG/0.4 ML SYRINGE SUBCUT SCH (10:13)
[2021-02-04] MEDS: METOPROLOL SUCCINATE 25 MG TAB.SR.24H (TOPROL XL) PO SCH (10:13)
[2021-02-04 11:23] VITALS: BP_SYST 137
--- NOTE | 2021-02-04 12:41 | NUR ---
CONSULTATION PAGED REASON FOR CONSULTATIONG=TUBE ADRIEN DRAINAGE WAS CONSULT CALED?Y PERSON WHO WAS NOTIFIED:VÍCTOR CONSULTING PHYSICIAN:NIKI OTERO (KIT JARAMILLO DESTATICIZER FEEDER) RELOCATION COORDINATOR SPECIALTY:GI RELOCATION COORDINATOR PHONE NUMBER:[phone] REQUESTING PHYSICIAN:ALLYSSA LOJA
--- NOTE | 2021-02-04 12:59 | NUR ---
Nutrition F/U Admitting Diagnosis R/O stroke Medical History Comment: COPD, HTN, hypothyroidism, HLD, dementia, previous TIA per physician notes SARS-CoV-2 Ag (Rapid) Negative 01/26 02/04 MD notes: Colon cancer, recurrent, CHF, Bedbound status. Subjective Information: Pt was seen in bed, awake and acknowledged presence of this RD and c/o abdominal pain. Son at bedside provided information. Per son, pt has been having watery BM's, EN has been infusing as ordered. Pt's son agreed w/ RD rec to add Banatrol to add bulk in pt's stool. Per EMR review, pt c/o abdominal pain per MD notes, GRVs have been minimal for the past 3 days (0-10ml). EN rate: 55ml (02/03). Ashutosh scale: 14, no pressure injury noted. Current EN regimen meets >80% of estimated needs and remains adequate and appropriate. Current Diet Order/Nutrition Support: Glucerna 1.5 at 55 ml/hr (goal rate), Free Water Flush: 150ml q6hr via GT x7 days Pertinent Medications: keppra, synthroid, lasix, lovenox, zofran Pertinent Labs: Na 135 L, K 3 L, Troponin 0.506 H Height (Feet) 5 feet Height (Inches) 6.00 inches Weight (Pounds) 141 pounds (01/28) -stable Weight (Calculated Kilograms) 63.776787 kilograms Body Mass Index 22.76 kg/m2 Holcomb/Adjusted Body Weight 130#/59 kg Estimated Energy Expenditure (kcals/day) 9225-3409 (30-35 kcal/kg CBW d/t stroke) Estimated Protein Required (g/day) 83-128 (1.3-2 gm/kg CBW d/t stroke) NEW Estimated Fluid Required (l/day) per MD (CHF) Problem/Etiology/Signs/Symptoms Increased nutritional needs R/T metabolic demands AEB estimated nutritional requirements for stroke and cancer. (*modified) Altered GI function r/t increased motility AEB watery stool per pt's son's report. (*new) Expected Outcomes/Goals - Monitor tolerance to EN support w/ goal of pt meeting >80% of estimated nutritional needs, labs trending WNL, normal GI function, and skin integrity/wt maintenance Dietitian Recommendations * Recommend: add Banatrol TID. * Continue: Glucerna 1.5 at 55 ml/hr (goal rate), Free Water Flush: 150 ml Q6h via GT Provides: 1980 kcal/day, 109 gm protein/day, and 1602 ml free water/day Meets: 103% of lower end of estimated caloric needs and 85% of upper end of estimated protein needs Follow Up High Risk: F/U in 2-3days
--- NOTE | 2021-02-04 13:06 | NUR ---
Dietitian Recommendations * Recommend: add Banatrol TID. * Continue: Glucerna 1.5 at 55 ml/hr (goal rate), Free Water Flush: 150 ml Q6h via GT Provides: 1980 kcal/day, 109 gm protein/day, and 1602 ml free water/day Meets: 103% of lower end of estimated caloric needs and 85% of upper end of estimated protein needs Please see Nutritional Assessment for details. LATOYA, RD
[2021-02-04 15:39] VITALS: BP_SYST 123
[2021-02-04] MEDS: ONDANSETRON HCL 4 MG/2 ML VIAL IVP PRN ×2 (18:05→23:15)
--- NOTE | 2021-02-04 18:30 | NUR ---
NOTES 0900- SON AT BEDSIDE, PATIENT WAS ALERT AND ORIENTED, CONTINUE ON GT FEEDING. 1000- TOOKE MEDS VIA MOUTH WITH APPLE SAUCE, TURNED AND RESPOSITIONED WITH BM, WITH SKIN BREAKDOWN BUTTOCKS AREA, NEW DRESSING CHANGED. 1200- SON WAS CONCERNED REGARDING REDNESS ON GT SITE, DR BARNES COVERING FOR DR BURDEN CAME AND EVALUATE PATIENT, ORDERED FOR GI TO SEE PATIENT 1600- DR MUKHERJEE CAME TO SEE PATIENT, ORDERED TO APPLY CALMOSEPTINE AROUND SITE. NATHAN REVERSER SAID THAT DR BARNES IS HOLDING THE DISCHARGE, PATIENT NEEDS WOUND CARE CONSULT, RE DKIN ISSUES, REDNESS GT SITE, ABDOMINAL FOLD, REDNESS UNDERNEATH THE BREAST, SKIN BREAKDOWN BUTTTCKS. INTER AG DRY APPLIED TO BREAST AREA. 1800 - DRESSING CHANGED BUTTOCKS, HAD A BM. C/O OF NAUSEA ZOFRAN GIVEN, C/O OF PAIN, ULTRAM GIVEN.
[2021-02-04] MEDS: SIMVASTATIN 10 MG TABLET PO SCH (22:36)
[2021-02-04] MEDS: MENTHOL/ZINC OXIDE 113 GM OINT. TP SCH (22:37)
[2021-02-04 23:04] VITALS: BP_SYST 127
[2021-02-05 00:05] VITALS: BP_SYST 124
[2021-02-05 06:43] LABS: BASOPHILS % (AUTO) 0.5 % (0.0-2.0); EOSINOPHILS # (AUTO) 0.1 K/uL (0.0-0.4); EOSINOPHILS % (AUTO) 1.7 % (0.0-4.0); HEMATOCRIT 33.3 % (36-48); HEMOGLOBIN 10.7 g/dL (12.0-16.0); LYMPHOCYTES # (AUTO) 0.7 K/uL (1.0-5.5); LYMPHOCYTES % (AUTO) 16.3 % (20.5-51.5); MEAN CORPUSCULAR HEMOGLOBIN 28 pg (27-31); MEAN CORPUSCULAR HGB CONC 32 % (32-36); MEAN CORPUSCULAR VOLUME 85 fL (79.0-98.0); MONOCYTES # (AUTO) 0.6 K/uL (0.0-1.0); MONOCYTES % (AUTO) 13.6 % (1.7-9.3); NEUTROPHILS % (AUTO) 67.9 % (40.0-70.0); PLATELET COUNT (AUTO) 213 K/uL (130-430); RED BLOOD CELL COUNT(AUTO) 3.91 MIL/uL (4.2-6.2); RED CELL DISTRIBUTION WIDTH 16.3 % (9.0-15.0); WHITE BLOOD COUNT (AUTO) 4.5 K/uL (4.8-10.8)
[2021-02-05] MEDS: LEVOTHYROXINE SODIUM 0.112 MG TABLET PO SCH (07:21)
--- NOTE | 2021-02-05 07:26 | NUR ---
pt laying in bed resting. all needs meet at this time. g-tube currently on. hob elevated. call light within reach. endorsed care to day rn.
--- NOTE | 2021-02-05 07:30 | NUR ---
DR. MUKHERJEE MADE ROUNDS, STATED THE REDNESS ABOUT THE TUBE SITE, NO SURGICAL RECOMMENDATION AT THIS TIME, NEED TO CLEAN THE AREA AND APPLY CALMOSEPTINE, POSSIBLE NEED TO FREQUENT CHANGE OF DRESSING.
[2021-02-05 07:40] LABS: ANION GAP 8 (5-15); CALCIUM 8.7 mg/dL (8.4-11.0); CHLORIDE 105 mmol/L (98-107); CREATININE 1.21 mg/dL (0.55-1.30); GLUCOSE 106 mg/dL (70-99); POTASSIUM 4.8 mmol/L (3.5-5.1); SODIUM SERUM 142 mmol/L (136-145); UREA NITROGEN, BLOOD 44 mg/dL (8-21)
[2021-02-05 08:30] VITALS: BP_SYST 116
--- NOTE | 2021-02-05 09:00 | NUR ---
CARDIO CONSULT: SEEN BY DR. CEDILLO AND S/W PATIENT AND SON AT THE BEDSIDE.
[2021-02-05] MEDS: METOPROLOL SUCCINATE 25 MG TAB.SR.24H (TOPROL XL) PO SCH (10:38)
[2021-02-05] MEDS: FUROSEMIDE 20 MG TABLET PO SCH (10:39)
[2021-02-05] MEDS: ASPIRIN 81 MG TAB.CHEW PO SCH (10:40)
[2021-02-05] MEDS: levETIRAcetam 500 MG TABLET GT SCH (10:40)
[2021-02-05] MEDS: MENTHOL/ZINC OXIDE 113 GM OINT. TP SCH (10:42)
[2021-02-05] MEDS: ENOXAPARIN SODIUM 40 MG/0.4 ML SYRINGE SUBCUT SCH (10:42)
--- NOTE | 2021-02-05 11:07 | NUR ---
PATIENT COMPLAINED OF ABDOMINAL PAIN, HX OF CANCER PER SON AT THE BEDSIDE. DR. BARNES STATED WILL SEE PATIENT FIRST.
[2021-02-05 11:18] VITALS: BP_SYST 116
[2021-02-05] MEDS ORDERED: LEVE750T4 PO (11:36)
[2021-02-05] MEDS ORDERED: HYDR-3917 PO (11:36)
[2021-02-05] MEDS ORDERED: NALOXONE HCL 0.4 MG/ML AMP (NARCAN) IVP PRN (11:45)
[2021-02-05] MEDS ORDERED: HYDROcodone/ACETAMIN 5-325 MG TAB (NORCO/ VICODIN) PO ONE (11:45)
[2021-02-05 12:31] VITALS: BP_SYST 116
--- NOTE | 2021-02-05 17:13 | NUR ---
D/C Patient Patient and son given medication reconciliation form and D/C instructions. Exit Care provided. Patient verbalized understanding. MD discussed with patient the results and treatment provided.stable condition for discharge to home. Patient in stable condition, ID band removed. IV catheter removed, intact and dressing applied, no active bleeding. Rx of sherlyn dubon given. Patient educated on pain management. All belongings sent with patient.wheel out via wheelchair.
== END 2021-02-05 17:10 | disposition home health service (06) | DRG 689 ==
LOC: SED 22:55 → STU 01-26 02:23 → SMU 01-31 12:24 → STU 02-03 03:49 → SMU 02-04 13:42 → STU 02-04 15:48 → SMU 02-04 16:12 → STU 02-04 16:25
PROVIDERS: ADMIT Internal Medicine Hospice and Palliative Medicine; ATTEND Internal Medicine Hospice and Palliative Medicine
DX: N39.0 Urinary tract infection, site not specified (principal); E43 Unspecified severe protein-calorie malnutrition; G93.41 Metabolic encephalopathy; I21.A1 Myocardial infarction type 2; E87.1 Hypo-osmolality and hyponatremia; I42.9 Cardiomyopathy, unspecified; K94.23 Gastrostomy malfunction; E86.0 Dehydration; B96.89 Other specified bacterial agents as the cause of diseases classified elsewhere; G40.909 Epilepsy, unspecified, not intractable, without status epilepticus; F03.90 Unspecified dementia, unspecified severity, without behavioral disturbance, psychotic disturbance, mood disturbance, and anxiety; I50.9 Heart failure, unspecified; I11.0 Hypertensive heart disease with heart failure; I25.10 Atherosclerotic heart disease of native coronary artery without angina pectoris; D72.819 Decreased white blood cell count, unspecified; D64.9 Anemia, unspecified; J44.9 Chronic obstructive pulmonary disease, unspecified; R13.10 Dysphagia, unspecified; E03.9 Hypothyroidism, unspecified; E78.5 Hyperlipidemia, unspecified; E87.6 Hypokalemia; K46.9 Unspecified abdominal hernia without obstruction or gangrene; R53.1 Weakness; Z20.822 Contact with and (suspected) exposure to COVID-19; R73.9 Hyperglycemia, unspecified; R19.00 Intra-abdominal and pelvic swelling, mass and lump, unspecified site; K43.9 Ventral hernia without obstruction or gangrene; Y83.3 Surgical operation with formation of external stoma as the cause of abnormal reaction of the patient, or of later complication, without mention of misadventure at the time of the procedure; Y92.238 Other place in hospital as the place of occurrence of the external cause; Z79.01 Long term (current) use of anticoagulants; Z85.038 Personal history of other malignant neoplasm of large intestine; I25.2 Old myocardial infarction; Z86.73 Personal history of transient ischemic attack (TIA), and cerebral infarction without residual deficits; Z87.440 Personal history of urinary (tract) infections; Z87.891 Personal history of nicotine dependence; Z79.899 Other long term (current) drug therapy; Z79.82 Long term (current) use of aspirin; Z88.0 Allergy status to penicillin; Z88.5 Allergy status to narcotic agent; Z88.8 Allergy status to other drugs, medicaments and biological substances; Z91.041 Radiographic dye allergy status; Z68.22 Body mass index [BMI] 22.0-22.9, adult
CPT/HCPCS: 36415; 70450-TC; 70551; 71045; 72131; 76376; 80048; 80053; 81000; 82378; 83735; 83880; 84100; 84484; 85025; 85610-TC; 87086; 93005; 93306; 94640; 94760; 95816; 96374; 99285; G0378; J0696; J1200; J1650; J2270; J2405; J3480; J7050; J7060; Q9964

== ENCOUNTER 2021-02-09 19:15 | Inpatient (IN) | payer OTHER, SELFPAY ==
[~2021-02-09] VITALS: Ht 170.2 cm; Wt 65.8 kg
[~2021-02-09 19:15] MED LIST: ALPR0.25 PO; ASA81 PO; CIPR500T5 PO; CYAN100010 PO; FOLI-43 PO; FURO-150 PO; HYDR-3917 PO; LEVE750T4 PO; LEVO112T5 PO; METO25TA3 PO; OLOP5DRO15 EACH EYE; SIMV10TA97 PO; TRAM50TA PO
[2021-02-09 19:36] VITALS: BP_SYST 180
[2021-02-09 20:51] LABS: BASOPHILS % (AUTO) 0.7 % (0.0-2.0); EOSINOPHILS % (AUTO) 0.8 % (0.0-4.0); HEMATOCRIT 36.2 % (36-48); HEMOGLOBIN 11.8 g/dL (12.0-16.0); LYMPHOCYTES # (AUTO) 0.7 K/uL (1.0-5.5); LYMPHOCYTES % (AUTO) 25.2 % (20.5-51.5); MEAN CORPUSCULAR HEMOGLOBIN 27 pg (27-31); MEAN CORPUSCULAR HGB CONC 33 % (32-36); MEAN CORPUSCULAR VOLUME 83 fL (79.0-98.0); MONOCYTES # (AUTO) 0.4 K/uL (0.0-1.0); MONOCYTES % (AUTO) 12.6 % (1.7-9.3); NEUTROPHILS # (AUTO) 1.8 K/uL (1.8-7.7); NEUTROPHILS % (AUTO) 60.7 % (40.0-70.0); PLATELET COUNT (AUTO) 229 K/uL (130-430); RED BLOOD CELL COUNT(AUTO) 4.35 MIL/uL (4.2-6.2); RED CELL DISTRIBUTION WIDTH 16.1 % (9.0-15.0)
[2021-02-09 21:07] LABS: ANION GAP 8 (5-15); CALCIUM 9.2 mg/dL (8.4-11.0); CHLORIDE 103 mmol/L (98-107); CREATININE 0.96 mg/dL (0.55-1.30); GLUCOSE 91 mg/dL (70-99); POTASSIUM 4.1 mmol/L (3.5-5.1); SODIUM SERUM 138 mmol/L (136-145); UREA NITROGEN, BLOOD 33 mg/dL (8-21)
[2021-02-09 21:16] LABS: ALANINE AMINOTRANSFERASE 24 U/L (12-78); ALBUMIN 2.6 g/dL (3.4-4.8); ASPARTATE AMINOTRANSFERASE 39 U/L (10-37); TOTAL BILIRUBIN 0.5 mg/dL (0.0-1.0)
[2021-02-09 22:03] LABS: INR 1.2 (0.8-1.2); PROTHROMBIN TIME 12.7 SECS (9.5-12.5)
[2021-02-09] MEDS ORDERED: ASPIRIN 325 MG TABLET PO ONE (23:15)
[2021-02-10] MEDS ORDERED: fentaNYL CITRATE/PF 100 MCG/2 ML AMP IVP ONE (03:45)
[2021-02-10] MEDS ORDERED: DIPHENHYDRAMINE INJ 50 MG/ML VIAL IVP ONE (03:45)
[2021-02-10 08:30] VITALS: BP_SYST 136
[2021-02-10] MEDS ORDERED: NACL 0.9% 1,000 ML IV SCH ×2 (08:30)
[2021-02-10] MEDS ORDERED: MECLIZINE HCL 25 MG TABLET (ANITVERT) PO PRN (08:30)
[2021-02-10] MEDS ORDERED: DOCUSATE SODIUM 100 MG/10 ML UDC PO PRN (08:30)
[2021-02-10] MEDS ORDERED: guaiFENesin/DEXTROMETHORPHAN 10 ML UDC PO PRN (08:30)
[2021-02-10] MEDS ORDERED: ACETAMINOPHEN 500 MG TABLET PO PRN (08:30)
[2021-02-10] MEDS ORDERED: ZOLPIDEM TARTRATE 5 MG TABLET PO PRN (08:30)
[2021-02-10] MEDS ORDERED: ONDANSETRON HCL 4 MG/2 ML VIAL IVP PRN (08:30)
[2021-02-10] MEDS ORDERED: FUROSEMIDE 20 MG TABLET PO SCH (09:00)
[2021-02-10] MEDS ORDERED: NALOXONE HCL 0.4 MG/ML AMP (NARCAN) IVP PRN (09:45)
[2021-02-10] MEDS ORDERED: LOSARTAN POTASSIUM 50 MG TABLET (COZAAR) PO ONE (10:00)
[2021-02-10] MEDS ORDERED: FUROSEMIDE 20 MG/2 ML VIAL IVP ONE (10:00)
[2021-02-10] MEDS ORDERED: metOLazone 2.5 MG TABLET PO ONE (10:15)
[2021-02-10] MEDS ORDERED: amLODIPine BESYLATE 5 MG TABLET PO ONE (10:30)
[2021-02-10] MEDS: PANTOPRAZOLE SODIUM 40 MG TAB PO SCH (11:24)
[2021-02-10] MEDS: ASPIRIN 81 MG TAB.CHEW PO SCH (11:24)
[2021-02-10] MEDS: METOPROLOL SUCCINATE 25 MG TAB.SR.24H (TOPROL XL) PO SCH (11:24)
[2021-02-10] MEDS: LEVOTHYROXINE SODIUM 0.112 MG TABLET PO SCH (11:24)
[2021-02-10] MEDS: HEPARIN SODIUM,PORCINE 5,000 UNITS/ML VIAL SUBCUT SCH ×2 (11:26→21:23)
[2021-02-10] MEDS: HYDROcodone/ACETAMIN 5-325 MG TAB (NORCO/ VICODIN) PO PRN ×2 (11:26→21:17)
[2021-02-10 12:30] VITALS: BP_SYST 137
[2021-02-10 12:41] LABS: PHOSPHORUS 3.3 mg/dL (2.7-4.5); THYROID STIMULATING HORMONE 5.64 uIu/mL (0.34-4.82)
[2021-02-10] MEDS: ALPRAZolam 0.25 MG TABLET PO PRN (15:31)
[2021-02-10 16:00] VITALS: BP_SYST 138
[2021-02-10 20:00] VITALS: BP_SYST 140
[2021-02-10] MEDS: FUROSEMIDE 20 MG/2 ML VIAL IVP SCH (21:00)
[2021-02-10] MEDS ORDERED: FUROSEMIDE 20 MG/2 ML VIAL IVP SCH (21:00)
[2021-02-10] MEDS: levETIRAcetam 500 MG TABLET PO SCH (21:18)
[2021-02-11 01:14] VITALS: BP_SYST 137
[2021-02-11 07:58] LABS: ALANINE AMINOTRANSFERASE 21 U/L (12-78); ALBUMIN 2.5 g/dL (3.4-4.8); ANION GAP 10 (5-15); ASPARTATE AMINOTRANSFERASE 35 U/L (10-37); CALCIUM 8.9 mg/dL (8.4-11.0); CHLORIDE 106 mmol/L (98-107); CREATININE 1.04 mg/dL (0.55-1.30); GLUCOSE 87 mg/dL (70-99); POTASSIUM 3.9 mmol/L (3.5-5.1); SODIUM SERUM 144 mmol/L (136-145); TOTAL BILIRUBIN 0.5 mg/dL (0.0-1.0); UREA NITROGEN, BLOOD 31 mg/dL (8-21)
[2021-02-11 08:03] LABS: HEMATOCRIT 33.9 % (36-48); HEMOGLOBIN 11.3 g/dL (12.0-16.0); LYMPHOCYTES # (AUTO) 0.6 K/uL (1.0-5.5); LYMPHOCYTES % (AUTO) 28.5 % (20.5-51.5); MEAN CORPUSCULAR HEMOGLOBIN 28 pg (27-31); MEAN CORPUSCULAR HGB CONC 33 % (32-36); MEAN CORPUSCULAR VOLUME 84 fL (79.0-98.0); MONOCYTES # (AUTO) 0.3 K/uL (0.0-1.0); MONOCYTES % (AUTO) 16.5 % (1.7-9.3); NEUTROPHILS # (AUTO) 1.1 K/uL (1.8-7.7); PLATELET COUNT (AUTO) 212 K/uL (130-430); RED BLOOD CELL COUNT(AUTO) 4.06 MIL/uL (4.2-6.2); WHITE BLOOD COUNT (AUTO) 2.1 K/uL (4.8-10.8)
[2021-02-11] MEDS ORDERED: POTASSIUM CHLORIDE 20 MEQ TAB.PRT.SR PO PRN (09:00)
[2021-02-11] MEDS: FUROSEMIDE 20 MG/2 ML VIAL IVP SCH ×2 (10:20→22:34)
[2021-02-11] MEDS: amLODIPine BESYLATE 5 MG TABLET PO SCH (10:49)
[2021-02-11] MEDS: LOSARTAN POTASSIUM 50 MG TABLET (COZAAR) PO SCH (10:50)
[2021-02-11] MEDS: METOPROLOL SUCCINATE 25 MG TAB.SR.24H (TOPROL XL) PO SCH (10:51)
[2021-02-11] MEDS: PANTOPRAZOLE SODIUM 40 MG TAB PO SCH (10:51)
[2021-02-11] MEDS: ASPIRIN 81 MG TAB.CHEW PO SCH (10:51)
[2021-02-11] MEDS: levETIRAcetam 500 MG TABLET PO SCH ×2 (10:52→21:00)
[2021-02-11] MEDS: HEPARIN SODIUM,PORCINE 5,000 UNITS/ML VIAL SUBCUT SCH ×2 (10:57→21:00)
[2021-02-11] MEDS: LEVOTHYROXINE SODIUM 0.112 MG TABLET PO SCH (10:58)
[2021-02-11] MEDS: HYDROcodone/ACETAMIN 5-325 MG TAB (NORCO/ VICODIN) PO PRN ×2 (11:15→22:35)
[2021-02-11 12:44] VITALS: BP_SYST 134
[2021-02-11] MEDS ORDERED: LORazepam 2 MG/ML VIAL IVP ONE (15:10)
[2021-02-11 15:45] VITALS: BP_SYST 130
[2021-02-11 20:00] VITALS: BP_SYST 128
[2021-02-11] MEDS: ALPRAZolam 0.25 MG TABLET PO PRN (22:35)
[2021-02-12] VITALS: BP_SYST 132
[2021-02-12] MEDS: HYDROcodone/ACETAMIN 5-325 MG TAB (NORCO/ VICODIN) PO PRN ×2 (03:42→20:29)
[2021-02-12] MEDS: LEVOTHYROXINE SODIUM 0.112 MG TABLET PO SCH (06:03)
[2021-02-12 06:46] LABS: BASOPHILS % (AUTO) 0.9 % (0.0-2.0); EOSINOPHILS # (AUTO) 0.1 K/uL (0.0-0.4); EOSINOPHILS % (AUTO) 4.2 % (0.0-4.0); HEMATOCRIT 34.4 % (36-48); HEMOGLOBIN 11.1 g/dL (12.0-16.0); LYMPHOCYTES # (AUTO) 0.7 K/uL (1.0-5.5); LYMPHOCYTES % (AUTO) 29.6 % (20.5-51.5); MEAN CORPUSCULAR HEMOGLOBIN 28 pg (27-31); MEAN CORPUSCULAR HGB CONC 32 % (32-36); MEAN CORPUSCULAR VOLUME 86 fL (79.0-98.0); MONOCYTES # (AUTO) 0.4 K/uL (0.0-1.0); MONOCYTES % (AUTO) 16.2 % (1.7-9.3); NEUTROPHILS # (AUTO) 1.1 K/uL (1.8-7.7); NEUTROPHILS % (AUTO) 49.1 % (40.0-70.0); PLATELET COUNT (AUTO) 190 K/uL (130-430); RED BLOOD CELL COUNT(AUTO) 4.03 MIL/uL (4.2-6.2); RED CELL DISTRIBUTION WIDTH 16.3 % (9.0-15.0); WHITE BLOOD COUNT (AUTO) 2.2 K/uL (4.8-10.8)
[2021-02-12 06:58] LABS: ANION GAP 7 (5-15); CALCIUM 8.5 mg/dL (8.4-11.0); CHLORIDE 107 mmol/L (98-107); CREATININE 1.18 mg/dL (0.55-1.30); GLUCOSE 89 mg/dL (70-99); POTASSIUM 3.7 mmol/L (3.5-5.1); SODIUM SERUM 144 mmol/L (136-145); UREA NITROGEN, BLOOD 31 mg/dL (8-21)
[2021-02-12 08:00] VITALS: BP_SYST 103
[2021-02-12] MEDS ORDERED: LORazepam 2 MG/ML VIAL ONE (11:32)
[2021-02-12 12:44] VITALS: BP_SYST 131
[2021-02-12] MEDS: ASPIRIN 81 MG TAB.CHEW PO SCH (15:38)
[2021-02-12] MEDS: levETIRAcetam 500 MG TABLET PO SCH ×2 (15:38→20:26)
[2021-02-12] MEDS: PANTOPRAZOLE SODIUM 40 MG TAB PO SCH (15:39)
[2021-02-12] MEDS: LOSARTAN POTASSIUM 50 MG TABLET (COZAAR) PO SCH (15:39)
[2021-02-12] MEDS: METOPROLOL SUCCINATE 25 MG TAB.SR.24H (TOPROL XL) PO SCH (15:39)
[2021-02-12] MEDS: amLODIPine BESYLATE 5 MG TABLET PO SCH (15:40)
[2021-02-12] MEDS: FUROSEMIDE 20 MG/2 ML VIAL IVP SCH ×2 (15:41→20:25)
[2021-02-12] MEDS: HEPARIN SODIUM,PORCINE 5,000 UNITS/ML VIAL SUBCUT SCH ×2 (15:43→20:28)
[2021-02-12 16:00] VITALS: BP_SYST 115
[2021-02-12 20:00] VITALS: BP_SYST 121
[2021-02-12] MEDS: ALPRAZolam 0.25 MG TABLET PO PRN (22:42)
[2021-02-13] VITALS: BP_SYST 112
[2021-02-13] MEDS: HYDROcodone/ACETAMIN 5-325 MG TAB (NORCO/ VICODIN) PO PRN ×2 (02:35→12:51)
[2021-02-13] MEDS: LEVOTHYROXINE SODIUM 0.112 MG TABLET PO SCH (06:08)
[2021-02-13 07:47] LABS: BASOPHILS % (AUTO) 0.6 % (0.0-2.0); EOSINOPHILS # (AUTO) 0.1 K/uL (0.0-0.4); EOSINOPHILS % (AUTO) 3.7 % (0.0-4.0); HEMATOCRIT 35.5 % (36-48); HEMOGLOBIN 11.5 g/dL (12.0-16.0); LYMPHOCYTES # (AUTO) 0.9 K/uL (1.0-5.5); LYMPHOCYTES % (AUTO) 30.8 % (20.5-51.5); MEAN CORPUSCULAR HEMOGLOBIN 28 pg (27-31); MEAN CORPUSCULAR HGB CONC 32 % (32-36); MEAN CORPUSCULAR VOLUME 86 fL (79.0-98.0); MONOCYTES # (AUTO) 0.6 K/uL (0.0-1.0); MONOCYTES % (AUTO) 18.9 % (1.7-9.3); NEUTROPHILS # (AUTO) 1.4 K/uL (1.8-7.7); PLATELET COUNT (AUTO) 174 K/uL (130-430); RED BLOOD CELL COUNT(AUTO) 4.15 MIL/uL (4.2-6.2); RED CELL DISTRIBUTION WIDTH 16.5 % (9.0-15.0)
[2021-02-13 08:00] VITALS: BP_SYST 93
[2021-02-13 08:01] LABS: ANION GAP 5 (5-15); CALCIUM 8.4 mg/dL (8.4-11.0); CHLORIDE 106 mmol/L (98-107); CREATININE 1.16 mg/dL (0.55-1.30); GLUCOSE 82 mg/dL (70-99); POTASSIUM 3.8 mmol/L (3.5-5.1); SODIUM SERUM 144 mmol/L (136-145); UREA NITROGEN, BLOOD 34 mg/dL (8-21)
[2021-02-13] MEDS: levETIRAcetam 500 MG TABLET PO SCH (09:09)
[2021-02-13] MEDS: ASPIRIN 81 MG TAB.CHEW PO SCH (09:09)
[2021-02-13] MEDS: amLODIPine BESYLATE 5 MG TABLET PO SCH (09:16)
[2021-02-13] MEDS: LOSARTAN POTASSIUM 50 MG TABLET (COZAAR) PO SCH (09:16)
[2021-02-13] MEDS: PANTOPRAZOLE SODIUM 40 MG TAB PO SCH (09:17)
[2021-02-13] MEDS: METOPROLOL SUCCINATE 25 MG TAB.SR.24H (TOPROL XL) PO SCH (09:17)
[2021-02-13] MEDS: FUROSEMIDE 20 MG/2 ML VIAL IVP SCH (09:18)
[2021-02-13] MEDS: HEPARIN SODIUM,PORCINE 5,000 UNITS/ML VIAL SUBCUT SCH (09:19)
[2021-02-13] MEDS ORDERED: FURO-149 PO (10:29)
[2021-02-13 13:23] VITALS: BP_SYST 117
== END 2021-02-13 15:30 | disposition home or self-care (01) | DRG 291 ==
LOC: SED 19:15 → SMU 23:47 → STU 02-11 10:19
PROVIDERS: ADMIT Internal Medicine Hospice and Palliative Medicine; ATTEND Internal Medicine Hospice and Palliative Medicine
DX: I50.43 Acute on chronic combined systolic (congestive) and diastolic (congestive) heart failure (principal); E43 Unspecified severe protein-calorie malnutrition; C18.9 Malignant neoplasm of colon, unspecified; I44.7 Left bundle-branch block, unspecified; I25.10 Atherosclerotic heart disease of native coronary artery without angina pectoris; R53.1 Weakness; Z20.822 Contact with and (suspected) exposure to COVID-19; G40.909 Epilepsy, unspecified, not intractable, without status epilepticus; Z87.440 Personal history of urinary (tract) infections; Z74.01 Bed confinement status; I25.2 Old myocardial infarction; Z93.1 Gastrostomy status; Z68.22 Body mass index [BMI] 22.0-22.9, adult; Z88.0 Allergy status to penicillin; Z88.5 Allergy status to narcotic agent; Z88.8 Allergy status to other drugs, medicaments and biological substances; Z91.041 Radiographic dye allergy status; Z79.899 Other long term (current) drug therapy; Z79.82 Long term (current) use of aspirin
CPT/HCPCS: 36415; 70450-TC; 70551; 71045; 76376; 80048; 80053; 80061; 82150; 83036; 83605; 83690; 83735; 83880; 84100; 84439; 84443; 84484; 85025; 85610-TC; 85730-TC; 86886; 86900; 86901; 87040; 92610-GN; 93005; 93880; 95816; 96361; 96374; 96375; 99285; G0378; J1200; J1644; J1940; J2060; J3010